=== PATIENT | female | born 1995 | race Native Hawaiian/Other Pacific Islander ===

== ENCOUNTER 2020-07-01 02:21 | Emergency (ER) | payer OTHER ==
[~2020-07-01] VITALS: Ht 154.9 cm; Wt 53.1 kg
[2020-07-01 03:45] LABS: PLATELET COUNT 254 K/uL (152-353)
[2020-07-01 03:57] LABS: POTASSIUM 3.9 mmol/L (3.6-5.2)
[2020-07-01 13:30] VITALS: BP 108/62; TEMP 97.7
== END 2020-07-01 13:30 | disposition other institution (70) ==
LOC: ED 02:21
PROVIDERS: Emergency Medicine Emergency Medical Services
DX: F32.89 Other specified depressive episodes (principal); R45.851 Suicidal ideations; Z03.818 Encounter for observation for suspected exposure to other biological agents ruled out
CPT/HCPCS: 36415; 80053; 80307; 80320; 80329; 81000; 81025; 85027; 87635; 93005; 96360; 99285; U0003